=== PATIENT | male | born 1940 | race Caucasian/White ===

== ENCOUNTER 2018-03-16 10:46 | Emergency (ER) | payer SELFPAY ==
[2018-03-16] MEDS ORDERED: DOPamine 400mg/250ml D5W 400 MG/250 ML BAG IV ONE (10:55)
[2018-03-16 11:11] VITALS: BMI 29.8
[2018-03-16 11:14] LABS: BASO # 0.04 K/mm3 (0.0-2.0); BASO % 0.4 % (0.0-3.0); EOS # 0.1 (0.0-0.7); EOS % 0.9 % (1.5-5.0); GRAN # 4.08 (1.4-6.5); GRAN % 37.7 % (50.0-68.0); HEMOGLOBIN 10.8 g/dL (14.0-18.0); LYMPH # 6.3 (1.2-3.4); LYMPH % 58.6 % (22.0-35.0); MEAN CORPUSCULAR HEMOGLOBIN 28.2 pg (25.0-35.0); MEAN CORPUSCULAR HGB CONC 30.3 g/dl (31.0-37.0); MONO # 0.3 (0.1-0.6); MONO % 2.4 % (1.0-6.0); RBC 3.83 10^6/uL (3.5-6.1); RED CELL DISTRIBUTION WIDTH 16.6 % (11.5-14.5); WHITE BLOOD COUNT 10.8 10^3/uL (4.5-11.0)
[2018-03-16] MEDS ORDERED: DOPamine 400mg/250ml D5W 400 MG/250 ML BAG IV PRN (11:14)
[2018-03-16] MEDS ORDERED: Sodium Chloride 0.9% 2,000 ML IV STA (11:14)
[2018-03-16 11:23] LABS: INR 1.31; PARTIAL THROMBOPLASTIN TIME 38.2 Seconds (25.1-36.5); PROTHROMBIN TIME 15.2 SECONDS (9.4-12.5)
[2018-03-16 11:25] LABS: VENOUS BLOOD GAS BASE EXCESS -18.6 mmol/L (0.0-2.0); VENOUS BLOOD GAS PO2 41 mm/Hg (30-55)
[2018-03-16 11:27] LABS: ARTERIAL BLOOD GAS HCO3 15.2 mmol/L (21-28); ARTERIAL BLOOD GAS O2 SAT 89.8 % (95-98); ARTERIAL BLOOD GAS TCO2 17.5 mmol.L (22-28)
[2018-03-16 11:30] LABS: CALCIUM 9.2 mg/dL (8.4-10.5)
[2018-03-16 11:32] LABS: ALB/GLOB RATIO 0.9 (1.1-1.8); ALBUMIN 3.9 g/dL (3.0-4.8)
[2018-03-16 11:35] LABS: VENOUS BLOOD PH 6.95 (7.32-7.43)
[2018-03-16 11:36] LABS: ARTERIAL BLOOD GAS PCO2 74 mm/Hg (35-45); ARTERIAL BLOOD GAS PH 6.92 (7.35-7.45)
--- NOTE | 2018-03-16 11:42 | ED PDOC ---
Arrival/HPI - General Chief Complaint: Cardiac Arrest Time Seen by Provider: 03/16/18 10:52 Historian: Family, EMS - Critical Care Critical Care Minutes: 30 minutes - History of Present Illness Narrative History of Present Illness (Text): 03/16/18 11:32 A 77 year old male, whose past medical history includes, diabetes, triple bypass in 2006, aortic stenosis, on antibiotics for osteomyelitis, brought in by EMS after cardiac arrest. Patient had witnessed arrest at 1005. EMS arrived at the scene and began CPR at 10:18. They intubated patient and started cpr with 3 rounds of epi given when patient had ROSC at 1037. No sedation given. PMD: Dr. Amanda Ortega 03/16/18 14:01 Past Medical History - Provider Review Nursing Documentation Reviewed: Yes - Cardiac Hx Cardiac Disorders: Yes Hx Congestive Heart Failure: Yes Hx Hypertension: Yes - Endocrine/Metabolic Hx Endocrine Disorders: Yes Hx Diabetes Mellitus Type 2: Yes - Musculoskeletal/Rheumatological Hx Musculoskeletal Disorders: Yes Hx Osteomyelitis: Yes - Psychiatric Hx Substance Use: No - Surgical History Hx Coronary Artery Bypass Graft: Yes - Anesthesia Hx Anesthesia: Yes Hx Anesthesia Reactions: No Hx Malignant Hyperthermia: No Family/Social History - Physician Review Nursing Documentation Reviewed: Yes Family/Social History: No Known Family HX Smoking Status: Former Smoker Hx Alcohol Use: No Hx Substance Use: No Allergies/Home Meds Allergies/Adverse Reactions: Allergies No Known Allergies Allergy (Verified 03/16/18 10:49) Home Medications: Home Meds Medication Instructions Recorded Confirmed Aspirin [Aspirin Chewable] 81 mg PO DAILY 03/16/18 03/16/18 Atorvastatin [Lipitor] 40 mg PO HS 03/16/18 03/16/18 Carvedilol [Coreg] 12.5 mg PO BID 03/16/18 03/16/18 Ciprofloxacin [Cipro] 500 mg PO Q12 03/16/18 03/16/18 Clopidogrel [Plavix] 75 mg PO DAILY 03/16/18 03/16/18 Furosemide [Lasix] 20 mg PO DAILY 03/16/18 03/16/18 Insulin Detemir [Levemir] 20 unit SC HS 03/16/18 03/16/18 Insulin Lispro [Humalog Kwikpen 6 units SC TID 03/16/18 03/16/18 U-100] Losartan Potassium 25 mg PO DAILY 03/16/18 03/16/18 Multivitamin/Iron/Folic Acid 1 each PO DAILY 03/16/18 03/16/18 [Multi Complete-Iron Tablet] amLODIPine [Norvasc] 10 mg PO DAILY 03/16/18 03/16/18 Review of Systems - Review of Systems Systems not reviewed;Unavailable: Intubated Physical Exam Blood Pressure: Normal Pulse: Tachycardic Respiratory Rate: Mechanically Ventilated Appearance: Positive for: Other (mottled) Mental Status: Positive for: other (GCS:3) - Systems Exam Head: Present: Atraumatic Pupils: Present: Non-Reactive (fixed and dilated) Mouth: Present: Other (Intubated. 24 at the lip. ) Respiratory/Chest: Present: Clear to Auscultation, Good Air Exchange, Other ( Breath sound bilaterally equal with bagging.) Cardiovascular: Present: Tachycardic. No: Murmurs Abdomen: Present: Other (Soft) Lower Extremity: Present: Other (Wounds to bilateral feet. Chronic venous stasis changes on bilateral legs. ) Neurological: No: GCS=15 (GCS=3) Medical Decision Making ED Course and Treatment: 03/16/18 11:48 Patient immediately seen on my arrival. He initially had heart rate and performed ekg that showed nsr at 93bpm with st elevation in v2 and avr and depression i, ii. Plan was to stabilize and transfer to research laboratory technician if possible. IVF was started. Dopamine was started. Patient then had episode of bradycardia and was given atropine and epi. He then lost pulses. CPR was started and continued for 6 rounds of CPR. See code sheet for medication given. CPR continued under ACLS protocol. Patient had no gag reflex, fix and dilated pupils and family were at bedside. No cardiac activity seen on ultrasound. Time of : 11:29. EDRS was started and spoke to PMD Dr. Ortega who reports that he will finish. medical administrative specialist notified. - Critical Care Critical Care Minutes: 30 minutes - Lab Interpretations Lab Results: 03/16/18 10:50 03/16/18 10:50 Lab Results 03/16/18 11:15: pCO2 74 H*, pO2 78.0 L, HCO3 15.2 L, ABG pH 6.92 L*, ABG Total CO2 17.5 L, ABG O2 Saturation 89.8 L, ABG Base Excess -18.3 L, ABG Potassium 3.7, Sodium 148.0, Chloride 110.0 H, Glucose 313 H, Lactate 12.7 H*, FiO2 100.0, Arterial Blood Potassium 3.7 03/16/18 10:50: Sodium Pending, Chloride Pending, Potassium Pending, Carbon Dioxide Pending, Anion Gap Pending, BUN 25 H, Creatinine 2.4 H, Est GFR ( Amer) 32, Est GFR (Non-Af Amer) 26, Random Glucose 212 H, Calcium 9.2, Phosphorus Pending, Magnesium Pending, Total Bilirubin Pending, AST Pending, ALT Pending, Alkaline Phosphatase Pending, Total Creatine Kinase Pending, Troponin I Pending, Total Protein Pending, Albumin Pending, Globulin Pending, Albumin/Globulin Ratio Pending 03/16/18 10:50: PT 15.2 H, INR 1.31, APTT 38.2 H 03/16/18 10:50: pO2 41, VBG pH 6.95 L*, VBG pCO2 64.0 H, VBG HCO3 14.1 L, VBG Total CO2 16.1 L, VBG O2 Sat (Calc) 51.0, VBG Base Excess -18.6 L, VBG Potassium 3.9, Sodium 144.0, Chloride 107.0, Glucose 209 H, Lactate 10.8 H*, FiO2 21.0, Venous Blood Potassium 3.9 03/16/18 10:50: WBC 10.8, RBC 3.83, Hgb 10.8 L, Hct 35.6 L, MCV 93.0, MCH 28.2, MCHC 30.3 L, RDW 16.6 H, Plt Count 229, MPV 10.0, Gran % 37.7 L, Lymph % (Auto) 58.6 H, Hall % (Auto) 2.4, Eos % (Auto) 0.9 L, Baso % (Auto) 0.4, Gran # 4.08, Lymph # (Auto) 6.3 H, Hall # (Auto) 0.3, Eos # (Auto) 0.1, Baso # (Auto) 0.04 I have reviewed the lab results: Yes - RAD Interpretation Radiology Orders: 03/16/18 11:13 CHEST PORTABLE [RAD] Stat - EKG Interpretation Interpreted by ED Physician: Yes Type: 12 lead EKG - Medication Orders Current Medication Orders: Dopamine HCl/Dextrose (Dopamine 400mg/250ml D5w) 400 mg in 250 mls @ 18.2 mls/hr IV .[id number] PRN PRN Reason: Agitation Sodium Chloride (Sodium Chloride 0.9%) 2,000 mls @ 999 mls/hr IV .[id number] STA Stop: 03/16/18 13:14 - Scribe Statement The provider has reviewed the documentation as recorded by the Scribe Tanna Hammonds Provider Scribe Attestation: All medical record entries made by the Scribe were at my direction and personally dictated by me. I have reviewed the chart and agree that the record accurately reflects my personal performance of the history, physical exam, medical decision making, and the department course for this patient. I have also personally directed, reviewed, and agree with the discharge instructions and disposition. Disposition/Present on Arrival - Present on Arrival Any Indicators Present on Arrival: No History of DVT/PE: No History of Uncontrolled Diabetes: No Urinary Catheter: No History of Decub. Ulcer: Yes History Surgical Site Infection Following: None - Disposition Have Diagnosis and Disposition been Completed?: Yes Diagnosis: Cardiac arrest Disposition: WITH WITHOUT AUTOPSY Disposition Time: 11:29 Condition: Forms: [employer] ([place])
[2018-03-16 12:01] LABS: TROPONIN I 1.57 ng/mL
[2018-03-16 14:44] VITALS: BP 0/0; PULSE 0; RESP 0; TEMP 0; O2SAT 0
--- NOTE | 2018-03-16 15:03 | CARD ---
APPROVED REPORT Date of service: 03/16/2018 EKG Measurement Heart [id number] <Conclusion> Normal sinus rhythm Possible Left atrial enlargement Right bundle branch block STTW changes c/w ischemia ST elevations, R/O acute OK.
--- NOTE | 2018-03-16 15:07 | CARD ---
APPROVED REPORT Date of service: 03/16/2018 EKG Measurement Heart [id number] <Conclusion> Sinus tachycardia Right bundle branch block Possible Inferior infarct, age unknown STTW changes c/w ischemia
== END 2018-03-16 11:29 ==
LOC: MERGE 10:46 → ED 10:46
DX: I46.9 Cardiac arrest, cause unspecified (principal); I11.0 Hypertensive heart disease with heart failure; I35.0 Nonrheumatic aortic (valve) stenosis; I50.9 Heart failure, unspecified; E11.9 Type 2 diabetes mellitus without complications; Z95.1 Presence of aortocoronary bypass graft; Z79.899 Other long term (current) drug therapy; Z87.891 Personal history of nicotine dependence